=== PATIENT | female | born 1970 ===

== ENCOUNTER 2021-03-23 07:02 | Outpatient (CLI) | payer OTHER | END 2021-03-23 07:03 | disposition home or self-care (01) | LOC: MAMMO 07:02 | PROVIDERS: ATTEND Internal Medicine | DX: Z12.31 Encounter for screening mammogram for malignant neoplasm of breast (principal) | CPT/HCPCS: 77067 ==

== ENCOUNTER 2021-05-29 13:54 | Outpatient (CLI) | payer BC, OTHER ==
--- NOTE | 2021-05-29 14:38 | Ultrasound Report ---
ULTRASOUND BREAST LEFT LIMITED, 05/29/2021 CLINICAL INFORMATION / INDICATION: R92.8. Callback for abnormal mammogram TECHNIQUE: Targeted ultrasound evaluation was performed of the area of interest. COMPARISON: 03/23/2021 FINDINGS: Ultrasound imaging of the left breast at the 3 clock position, 5 cm from the nipple demonstrates a 1. 0 cm reniform shaped intramammary lymph node. This corresponds to the area of mammographic concern. T here is also incidental note of a hypoechoic well-circumscribed oval mass at the 1:00 position, 5 cm the nipple measuring 0.4 x 0.5 x 0.3 cm. IMPRESSION: No sonographic evidence of malignancy. Area of mammographic concern consistent with an in tramammary lymph node. There is incidental note of a hypoechoic well-circumscribed mass within the le ft breast at the 1:00 position, 5 cm from the nipple. This most likely represents benign process such as a fibroadenoma. A repeat left breast ultrasound of the 1:00 position, 5 cm the nipple is recommen ded in 6 months. Follow up recommendation: Short term follow up in 6 months. BI-RADS Category 3: PROBABLY BENIGN. Followup in 6 months. A normal or "negative" report should not preclude biopsy or follow-up of a clinically suspicious find ing. Signer Name: Ashok Hayward DO Signed: 05/29/2021 2:34 PM Workstation Name: [id number]
== END 2021-05-29 13:55 | disposition home or self-care (01) ==
LOC: US 13:54
PROVIDERS: ATTEND Internal Medicine
DX: R92.8 Other abnormal and inconclusive findings on diagnostic imaging of breast (principal)

== ENCOUNTER 2021-06-18 12:34 | Outpatient (CLI) | payer BC ==
--- NOTE | 2021-06-18 14:34 | XRay Report ---
Left foot 3 views INDICATION: Pain FINDINGS: MTP joints and IP joints appear intact. Diffuse osteopenia seen throughout. Calcaneal spurr ing is seen near the plantar fascia and Achilles insertion. Signer Name: Vicente Macedo MD Signed: 06/18/2021 2:30 PM Workstation Name: [id number]
== END 2021-06-18 12:35 | disposition home or self-care (01) ==
LOC: XRAY 12:34
PROVIDERS: ATTEND Podiatrist Foot & Ankle Surgery
DX: M77.32 Calcaneal spur, left foot (principal); M85.862 Other specified disorders of bone density and structure, left lower leg; I70.209 Unspecified atherosclerosis of native arteries of extremities, unspecified extremity; M72.2 Plantar fascial fibromatosis; G60.8 Other hereditary and idiopathic neuropathies

== ENCOUNTER 2021-10-07 14:47 | Outpatient (CLI) | payer BC ==
[2021-10-07 16:00] LABS: Color,Urine Straw (Yellow); RBC,Urine < 1.0 /HPF (0.0-6.0); WBC,Urine < 1.0 /HPF (0.0-6.0)
[2021-10-07 16:05] LABS: Alanine Aminotransferase 33 units/L (7-56); Albumin 5.2 g/dL (3.9-5); BUN/Creatinine Ratio 10; Blood Urea Nitrogen 8 mg/dL (7-17); Calcium 10.3 mg/dL (8.4-10.2); Hemolysis Index 3
== END 2021-10-07 14:48 | disposition home or self-care (01) ==
LOC: LABHHL 14:47
PROVIDERS: ATTEND Internal Medicine
DX: E53.8 Deficiency of other specified B group vitamins (principal); N39.0 Urinary tract infection, site not specified; N91.2 Amenorrhea, unspecified
CPT/HCPCS: 36415; 80053; 81001; 82607; 82670; 83001; 83735